=== PATIENT | male | born 1980 | race Caucasian/White ===

== ENCOUNTER 2016-08-11 09:13 | Day surgery (SDC) | payer SELFPAY ==
[2016-08-11] MEDS ORDERED: LIDOCAINE 1% 5 ML SDV ONE (09:38)
[2016-08-11] MEDS ORDERED: BUPIVACAINE 0.5% 30 ML SDV ONE (09:55)
[2016-08-11] MEDS ORDERED: LR 1,000 ML IV ONE (10:21)
[2016-08-11] MEDS ORDERED: LIDOCAINE 1% 5 ML SDV ID PRN (10:21)
[2016-08-11] MEDS ORDERED: CEFAZOLIN 1 GM/DEXTROSE/50 ML BAG IV ONE (10:30)
[2016-08-11] MEDS ORDERED: fentaNYL 100 MCG/2 ML INJ ONE (10:39)
[2016-08-11] MEDS ORDERED: MIDAZOLAM 2 MG/2 ML VIAL ONE ×2 (10:39→10:54)
[2016-08-11] MEDS ORDERED: PROPOFOL/EMULSION 500 MG/50 ML BOTTLE IV ONE ×2 (10:39→11:54)
[2016-08-11] MEDS ORDERED: clonIDINE 1 MG/10 ML VIAL EP ONE (10:45)
[2016-08-11] MEDS ORDERED: ROPIVACAINE HCL 150 MG/30 ML INJ ONE (10:45)
[2016-08-11] MEDS ORDERED: KETOROLAC 30 MG/1 ML SDV ONE (12:13)
[2016-08-11] MEDS ORDERED: ONDANSETRON 4 MG/2 ML VIAL ONE (12:13)
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
== END 2016-08-11 16:10 | disposition home or self-care (01) ==
LOC: FSGY 09:13
PROVIDERS: ATTEND Podiatrist Foot & Ankle Surgery
PROC: 0QSP04Z Reposition Left Metatarsal with Internal Fixation Device, Open Approach (ICD-10-PCS; principal; 2016-08-11 10:45)
DX: S92.322A Displaced fracture of second metatarsal bone, left foot, initial encounter for closed fracture (principal); S92.332A Displaced fracture of third metatarsal bone, left foot, initial encounter for closed fracture; V19.49XA Pedal cycle driver injured in collision with other motor vehicles in traffic accident, initial encounter; Y93.55 Activity, bike riding; Y92.410 Unspecified street and highway as the place of occurrence of the external cause
CPT/HCPCS: C1713; J0690; J0735; J1885; J2250; J2405; J2704; J2795; J3010

== ENCOUNTER → 2016-08-22 | Outpatient (CLI) | payer OTHER ==
--- NOTE | 2016-08-22 14:57 | DX ---
Foot Minimum 3 Views Left History: Follow-up internal fixation plate placement. Check for healing.. Findings: Comparison to prior study from July 22, 2016. Internal fixation plate is in position across the fracture distal shaft of the left second and third metatarsals. The distal head of the second metatarsal appears to be rotated medially with an angle of about 25 degrees suspected with respect to the shaft of the second metatarsal. The third distal meta tarsal fracture appears to be well aligned. Osseous structures are partially obscured by the overlyin g cast material. It is difficult to confirm bridging across the fractures. Impression: 1. There is suspicion of angulation of the distal head second metatarsal rotated about 25 degrees wit h respect to the shaft with internal fixation plate present. 2. The third distal metatarsal fracture appears to be well aligned with internal fixation plate prese nt.
== END ==
LOC: BMCIMAGING 13:53
PROVIDERS: ATTEND Podiatrist Foot & Ankle Surgery
DX: S92.302D Fracture of unspecified metatarsal bone(s), left foot, subsequent encounter for fracture with routine healing (principal); R93.6 Abnormal findings on diagnostic imaging of limbs; Z98.1 Arthrodesis status

== ENCOUNTER → 2016-09-15 | Outpatient (CLI) | payer OTHER | LOC: BMCIMAGING 14:33 | PROVIDERS: ATTEND Podiatrist Foot & Ankle Surgery | DX: Z47.89 Encounter for other orthopedic aftercare (principal) ==

== ENCOUNTER → 2016-10-31 | Outpatient (CLI) | payer OTHER | LOC: BMCIMAGING 14:58 | PROVIDERS: ATTEND Podiatrist Foot & Ankle Surgery | DX: Z47.89 Encounter for other orthopedic aftercare (principal); S92.322A Displaced fracture of second metatarsal bone, left foot, initial encounter for closed fracture; S92.332A Displaced fracture of third metatarsal bone, left foot, initial encounter for closed fracture ==